=== PATIENT | male | born 1955 | race Caucasian/White ===

== ENCOUNTER 2017-12-05 02:36 | Inpatient (IN) | payer OTHER ==
[2017-12-05 03:25] LABS: ADD MAN DIFF? NO
[2017-12-05] MEDS: SOD CHLORIDE 0.9% 1,000 ML IV ×2 (03:26→13:23)
[2017-12-05 03:28] LABS: WHITE BLOOD COUNT 9.6 10^3/ul (4.8-10.8)
[2017-12-05 03:28] LABS: BASOPHILS % 0.4 % (0.0-2.0); EOSINOPHILS # 0.1 10^3/ul (0.0-0.5); EOSINOPHILS % 0.5 % (0.0-7.0); HEMATOCRIT 36.4 % (42.0-52.0); HEMOGLOBIN 12.2 g/dl (14.0-18.0); LYMPHOCYTES # 2.2 10^3/ul (0.8-2.9); LYMPHOCYTES % 22.8 % (15.0-51.0); MEAN CORPUSCULAR HGB CONC 33.5 g/dl (32.0-37.0); MEAN CORPUSCULAR VOLUME 83.7 fl (82.0-101.0); MEAN PLATELET VOLUME 9.1 fl (7.4-10.4); MONOCYTE # 0.6 10^3/ul (0.3-0.9); MONOCYTES % 5.8 % (0.0-11.0); NEUTROPHIL # 6.7 10^3/ul (1.6-7.5); PLATELET COUNT 351 10^3/UL (140-415); RED BLOOD COUNT 4.35 10^6/ul (4.70-6.10); RED CELL DISTRIBUTION WIDTH 15.5 % (11.5-14.5)
[2017-12-05 03:59] LABS: ALANINE AMINOTRANSFERASE 55 IU/L (13-69); ALBUMIN 3.6 g/dl (3.3-4.9); ALBUMIN/GLOBULIN RATIO 1.12; ALKALINE PHOSPHATASE 86 IU/L (42-121); ANION GAP 17 (8-16); ASPARTATE AMINO TRANSFERASE 38 IU/L (15-46); BILIRUBIN,INDIRECT 0.6 mg/dl (0-1.1); BILIRUBIN,TOTAL 0.6 mg/dl (0.2-1.3); BLOOD UREA NITROGEN 25 mg/dl (7-20); CALCIUM 9.4 mg/dl (8.4-10.2); CARBON DIOXIDE 22 mmol/L (21-31); CHLORIDE 100 mmol/L (97-110); CREATININE 1.44 mg/dl (0.61-1.24); GLUCOSE 127 mg/dl (70-220); LIPASE 34 U/L (23-300); POTASSIUM 4.2 mmol/L (3.5-5.1); SODIUM 135 mmol/L (135-144); TOTAL PROTEIN 6.8 g/dl (6.1-8.1)
[2017-12-05] MEDS: LORAZEPAM 2 MG INJ IV (04:26)
[2017-12-05] MEDS ORDERED: HALOPERIDOL 5 MG INJ IM (05:30)
[2017-12-05] MEDS ORDERED: NACL 0.9% 3 ML SYG IV (06:00)
[2017-12-05] MEDS ORDERED: DOCUSATE SODIUM 100 MG CAP PO (06:00)
[2017-12-05] MEDS: PANTOPRAZOLE (EC) 40 MG TAB PO (06:45)
[2017-12-05] MEDS: DIPHTH/TET/ACEL PERTUSS (ADULT) 0.5 ML VIAL IM* (06:46)
[2017-12-05] MEDS: LORAZEPAM 0.5 MG TAB PO ×2 (06:46→15:53)
[2017-12-05] MEDS: SOD CHLORIDE 0.9% 500 ML IV (08:57)
[2017-12-05] MEDS ORDERED: LISINOPRIL 20 MG TAB PO (09:00)
[2017-12-05] MEDS: DOCUSATE SODIUM 100 MG CAP PO (09:38)
[2017-12-05] MEDS: MEMANTINE 5 MG TAB PO (09:38)
[2017-12-05] MEDS: HEPARIN 5,000 UNIT/0.5 ML VIAL SC ×2 (09:41→21:45)
[2017-12-05] MEDS: OLANZAPINE (ODT) 5 MG TAB PO (10:42)
[2017-12-05] MEDS: THIAMINE 100 MG TAB PO (10:42)
[2017-12-05] MEDS: ROPINIROLE 0.25 MG TAB PO ×3 (10:42→21:41)
[2017-12-05] MEDS ORDERED: GLUCOSE GEL 15 GRAM TUBE PO ×2 (13:00)
[2017-12-05] MEDS ORDERED: GLUCOSE GEL 15 GRAM TUBE BUCCAL (13:00)
[2017-12-05] MEDS ORDERED: GLUCAGON 1 MG INJ IM (13:00)
[2017-12-05] MEDS ORDERED: DEXTROSE 50% 50 ML SYRINGE IV ×2 (13:00)
[2017-12-05] MEDS: INSULIN ASPART [NOVOLOG] 3 ML PEN SC ×2 (17:21→21:00)
[2017-12-05] MEDS: ATORVASTATIN 40 MG TAB PO (21:41)
[2017-12-05] MEDS: ACCU-CHEK XX (21:45)
[2017-12-06] MEDS: LORAZEPAM 0.5 MG TAB PO ×4 (00:13→22:30)
[2017-12-06] MEDS: ZOLPIDEM 5 MG TAB PO ×3 (01:49→23:42)
[2017-12-06] MEDS: SOD CHLORIDE 0.9% 1,000 ML IV ×2 (03:57→17:21)
[2017-12-06 06:02] LABS: ADD MAN DIFF? NO
[2017-12-06] MEDS: PANTOPRAZOLE (EC) 40 MG TAB PO (06:08)
[2017-12-06 06:10] LABS: BASOPHIL # 0.1 10^3/ul (0.0-0.1); BASOPHILS % 0.8 % (0.0-2.0); EOSINOPHILS % 0.6 % (0.0-7.0); HEMATOCRIT 32.7 % (42.0-52.0); HEMOGLOBIN 10.8 g/dl (14.0-18.0); LYMPHOCYTES # 1.2 10^3/ul (0.8-2.9); LYMPHOCYTES % 18.6 % (15.0-51.0); MEAN CORPUSCULAR HEMOGLOBIN 28.1 pg (29.0-33.0); MEAN CORPUSCULAR VOLUME 84.9 fl (82.0-101.0); MEAN PLATELET VOLUME 9.7 fl (7.4-10.4); MONOCYTE # 0.4 10^3/ul (0.3-0.9); MONOCYTES % 5.7 % (0.0-11.0); NEUTROPHIL # 4.9 10^3/ul (1.6-7.5); PLATELET COUNT 301 10^3/UL (140-415); RED BLOOD COUNT 3.85 10^6/ul (4.70-6.10); RED CELL DISTRIBUTION WIDTH 15.9 % (11.5-14.5)
[2017-12-06 06:10] LABS: WHITE BLOOD COUNT 6.6 10^3/ul (4.8-10.8)
[2017-12-06 06:21] LABS: HEMOGLOBIN A1C 6.9 % (0-5.9)
[2017-12-06 06:47] LABS: ALANINE AMINOTRANSFERASE 42 IU/L (13-69); ALBUMIN 3.2 g/dl (3.3-4.9); ALBUMIN/GLOBULIN RATIO 1.23; ALKALINE PHOSPHATASE 69 IU/L (42-121); ANION GAP 15 (8-16); ASPARTATE AMINO TRANSFERASE 17 IU/L (15-46); BILIRUBIN,INDIRECT 0.4 mg/dl (0-1.1); BILIRUBIN,TOTAL 0.4 mg/dl (0.2-1.3); BLOOD UREA NITROGEN 19 mg/dl (7-20); CALCIUM 8.9 mg/dl (8.4-10.2); CARBON DIOXIDE 25 mmol/L (21-31); CHLORIDE 102 mmol/L (97-110); CHOL/HDL RATIO 2.7 RATIO; CHOLESTEROL 112 mg/dl (100-200); CREATININE 1.28 mg/dl (0.61-1.24); GLUCOSE 96 mg/dl (70-220); HDL CHOLESTEROL 41 mg/dl (30-78); LDL CHOLESTEROL,CALCULATED 42 mg/dl; POTASSIUM 3.9 mmol/L (3.5-5.1); SODIUM 138 mmol/L (135-144); TOTAL PROTEIN 5.8 g/dl (6.1-8.1); TRIGLYCERIDES 147 mg/dl (0-149)
[2017-12-06 07:07] LABS: THYROID STIMULATING HORMONE 0.819 MIU/L (0.465-4.680)
[2017-12-06 07:28] LABS: MAGNESIUM 1.9 mg/dl (1.7-2.5)
[2017-12-06] MEDS: INSULIN ASPART [NOVOLOG] 3 ML PEN SC ×4 (07:51→20:26)
[2017-12-06] MEDS: ACETAMINOPHEN 325 MG TAB PO (07:55)
[2017-12-06] MEDS: THIAMINE 100 MG TAB PO (08:39)
[2017-12-06] MEDS: DOCUSATE SODIUM 100 MG CAP PO (08:39)
[2017-12-06] MEDS: ROPINIROLE 0.25 MG TAB PO ×3 (08:39→20:22)
[2017-12-06] MEDS: MEMANTINE 5 MG TAB PO (08:39)
[2017-12-06] MEDS: OLANZAPINE (ODT) 5 MG TAB PO (08:39)
[2017-12-06] MEDS: HEPARIN 5,000 UNIT/0.5 ML VIAL SC ×2 (08:41→20:25)
[2017-12-06] MEDS: DIPHENHYDRAMINE 50 MG INJ IM (10:00)
[2017-12-06 13:03] LABS: ADD UMIC YES; UR ASCORBIC ACID NEGATIVE (NEGATIVE); UR BILIRUBIN (Dip) NEGATIVE (NEGATIVE); UR BLOOD (Dip) 1+ mg/dL (NEGATIVE); UR CLARITY CLEAR (CLEAR); UR COLOR COLORLESS (YELLOW); UR GLUCOSE (Dip) NEGATIVE (NEGATIVE); UR KETONES (Dip) NEGATIVE (NEGATIVE); UR LEUKOCYTE ESTERASE (Dip) NEGATIVE Leu/ul (NEGATIVE); UR NITRITE (Dip) NEGATIVE (NEGATIVE); UR RBC 0 /HPF (0-5); UR SPECIFIC GRAVITY (Dip) 1.003 (1.003-1.030); UR TOTAL PROTEIN (Dip) NEGATIVE (NEGATIVE); UR UROBILINOGEN (Dip) NEGATIVE (NEGATIVE); UR WBC 0 /HPF (0-5)
[2017-12-06] MEDS: BALSAM PERU/CASTOR OIL 60 GM TUBE TOP ×2 (15:35→20:22)
[2017-12-06] MEDS: ATORVASTATIN 40 MG TAB PO (20:22)
[2017-12-07] MEDS: ACCU-CHEK XX (01:51)
[2017-12-07] MEDS: LORAZEPAM 0.5 MG TAB PO ×2 (04:29→10:46)
[2017-12-07] MEDS: PANTOPRAZOLE (EC) 40 MG TAB PO (05:32)
[2017-12-07] MEDS: SOD CHLORIDE 0.9% 1,000 ML IV ×2 (06:54→22:19)
[2017-12-07] MEDS: INSULIN ASPART [NOVOLOG] 3 ML PEN SC ×4 (07:56→20:19)
[2017-12-07] MEDS: ROPINIROLE 0.25 MG TAB PO ×3 (08:24→20:13)
[2017-12-07] MEDS: THIAMINE 100 MG TAB PO (08:24)
[2017-12-07] MEDS: MEMANTINE 5 MG TAB PO (08:24)
[2017-12-07] MEDS: BALSAM PERU/CASTOR OIL 60 GM TUBE TOP ×2 (08:24→20:13)
[2017-12-07] MEDS: DOCUSATE SODIUM 100 MG CAP PO (08:24)
[2017-12-07] MEDS: OLANZAPINE (ODT) 5 MG TAB PO (08:24)
[2017-12-07] MEDS: HEPARIN 5,000 UNIT/0.5 ML VIAL SC ×2 (08:26→20:19)
[2017-12-07] MEDS ORDERED: ALPRAZOLAM 0.5 MG TAB PO (12:00)
[2017-12-07] MEDS: ALPRAZOLAM 0.25 MG TAB PO ×2 (15:36→23:36)
[2017-12-07] MEDS: ATORVASTATIN 40 MG TAB PO (20:12)
[2017-12-07] MEDS: ZOLPIDEM 5 MG TAB PO ×2 (20:12→22:18)
[2017-12-07] MEDS ORDERED: HALOPERIDOL 5 MG INJ IM (22:30)
[2017-12-08] MEDS: ACCU-CHEK XX (02:00)
[2017-12-08] MEDS: PANTOPRAZOLE (EC) 40 MG TAB PO (05:47)
[2017-12-08] MEDS: ALPRAZOLAM 0.25 MG TAB PO ×3 (07:47→17:25)
[2017-12-08] MEDS: INSULIN ASPART [NOVOLOG] 3 ML PEN SC ×4 (07:47→21:00)
[2017-12-08] MEDS: THIAMINE 100 MG TAB PO (08:09)
[2017-12-08] MEDS: DOCUSATE SODIUM 100 MG CAP PO (08:09)
[2017-12-08] MEDS: ROPINIROLE 0.25 MG TAB PO ×3 (08:09→20:23)
[2017-12-08] MEDS: MEMANTINE 5 MG TAB PO (08:09)
[2017-12-08] MEDS: BALSAM PERU/CASTOR OIL 60 GM TUBE TOP ×2 (08:10→21:32)
[2017-12-08] MEDS: OLANZAPINE (ODT) 5 MG TAB PO (08:10)
[2017-12-08] MEDS: HEPARIN 5,000 UNIT/0.5 ML VIAL SC ×2 (08:13→20:26)
[2017-12-08] MEDS ORDERED: ALPRAZOLAM 0.5 MG TAB PO (12:00)
[2017-12-08] MEDS: SOD CHLORIDE 0.9% 1,000 ML IV ×2 (12:30→18:49)
[2017-12-08] MEDS: BENZTROPINE 1 MG TAB PO ×2 (14:05→20:23)
[2017-12-08] MEDS: ATORVASTATIN 40 MG TAB PO (20:24)
[2017-12-08] MEDS: ZOLPIDEM 5 MG TAB PO (20:25)
[2017-12-09] MEDS: ACCU-CHEK XX (02:00)
[2017-12-09] MEDS: ALPRAZOLAM 0.25 MG TAB PO ×3 (02:16→16:16)
[2017-12-09] MEDS: SOD CHLORIDE 0.9% 1,000 ML IV ×3 (02:48→17:06)
[2017-12-09] MEDS: PANTOPRAZOLE (EC) 40 MG TAB PO (06:07)
[2017-12-09] MEDS: INSULIN ASPART [NOVOLOG] 3 ML PEN SC ×4 (07:59→20:39)
[2017-12-09] MEDS: DOCUSATE SODIUM 100 MG CAP PO (08:38)
[2017-12-09] MEDS: MEMANTINE 5 MG TAB PO (08:38)
[2017-12-09] MEDS: THIAMINE 100 MG TAB PO (08:38)
[2017-12-09] MEDS: OLANZAPINE (ODT) 5 MG TAB PO (08:38)
[2017-12-09] MEDS: ROPINIROLE 0.25 MG TAB PO ×3 (08:38→20:09)
[2017-12-09] MEDS: HEPARIN 5,000 UNIT/0.5 ML VIAL SC ×2 (08:46→20:14)
[2017-12-09] MEDS: BALSAM PERU/CASTOR OIL 60 GM TUBE TOP ×2 (08:46→20:37)
[2017-12-09] MEDS: BENZTROPINE 1 MG TAB PO ×2 (08:47→20:09)
[2017-12-09] MEDS: BUSPIRONE 5 MG TAB PO ×2 (11:40→20:09)
[2017-12-09] MEDS: QUETIAPINE 100 MG TAB PO (20:10)
[2017-12-09] MEDS: ATORVASTATIN 40 MG TAB PO (20:10)
[2017-12-09] MEDS: traZODone 50 MG TAB PO (20:10)
[2017-12-10] MEDS: ALPRAZOLAM 0.25 MG TAB PO ×4 (01:57→21:05)
[2017-12-10] MEDS: ACCU-CHEK XX (02:00)
[2017-12-10] MEDS: hydrALAzine 20 MG INJ IV (02:13)
[2017-12-10] MEDS: SOD CHLORIDE 0.9% 1,000 ML IV ×2 (03:41→07:24)
[2017-12-10] MEDS: PANTOPRAZOLE (EC) 40 MG TAB PO (05:30)
[2017-12-10 07:00] LABS: ALBUMIN 3.8 g/dl (3.3-4.9); ANION GAP 15 (8-16); BLOOD UREA NITROGEN 19 mg/dl (7-20); CALCIUM 9.4 mg/dl (8.4-10.2); CARBON DIOXIDE 19 mmol/L (21-31); CHLORIDE 108 mmol/L (97-110); CREATININE 1.13 mg/dl (0.61-1.24); GLUCOSE 118 mg/dl (70-220); MAGNESIUM 1.5 mg/dl (1.7-2.5); POTASSIUM 4.2 mmol/L (3.5-5.1); SODIUM 138 mmol/L (135-144)
[2017-12-10] MEDS: INSULIN ASPART [NOVOLOG] 3 ML PEN SC ×4 (07:56→21:00)
[2017-12-10] MEDS: ROPINIROLE 0.25 MG TAB PO ×3 (08:54→20:55)
[2017-12-10] MEDS: MEMANTINE 5 MG TAB PO (08:54)
[2017-12-10] MEDS: DOCUSATE SODIUM 100 MG CAP PO (08:54)
[2017-12-10] MEDS: THIAMINE 100 MG TAB PO (08:54)
[2017-12-10] MEDS: BUSPIRONE 5 MG TAB PO ×2 (08:54→20:53)
[2017-12-10] MEDS: BALSAM PERU/CASTOR OIL 60 GM TUBE TOP ×2 (08:54→21:05)
[2017-12-10] MEDS: HEPARIN 5,000 UNIT/0.5 ML VIAL SC ×2 (08:57→21:00)
[2017-12-10] MEDS: BENZTROPINE 1 MG TAB PO ×2 (09:02→20:56)
[2017-12-10] MEDS: traZODone 50 MG TAB PO (20:54)
[2017-12-10] MEDS: QUETIAPINE 100 MG TAB PO (20:54)
[2017-12-10] MEDS: ATORVASTATIN 40 MG TAB PO (20:56)
[2017-12-11] MEDS: ACCU-CHEK XX (02:39)
[2017-12-11] MEDS: ALPRAZOLAM 0.25 MG TAB PO ×3 (03:07→17:18)
[2017-12-11] MEDS: PANTOPRAZOLE (EC) 40 MG TAB PO (05:45)
[2017-12-11 07:03] LABS: ALBUMIN 4.2 g/dl (3.3-4.9); ANION GAP 17 (8-16); BLOOD UREA NITROGEN 16 mg/dl (7-20); CALCIUM 9.8 mg/dl (8.4-10.2); CARBON DIOXIDE 21 mmol/L (21-31); CHLORIDE 105 mmol/L (97-110); CREATININE 1.15 mg/dl (0.61-1.24); GLUCOSE 121 mg/dl (70-220); MAGNESIUM 1.5 mg/dl (1.7-2.5); PHOSPHORUS 4.2 mg/dl (2.5-4.9); SODIUM 139 mmol/L (135-144)
[2017-12-11] MEDS: MEMANTINE 5 MG TAB PO (08:09)
[2017-12-11] MEDS: ROPINIROLE 0.25 MG TAB PO ×3 (08:09→19:48)
[2017-12-11] MEDS: DOCUSATE SODIUM 100 MG CAP PO (08:09)
[2017-12-11] MEDS: THIAMINE 100 MG TAB PO (08:09)
[2017-12-11] MEDS: BENZTROPINE 1 MG TAB PO ×2 (08:10→19:48)
[2017-12-11] MEDS: BUSPIRONE 5 MG TAB PO ×2 (08:10→19:48)
[2017-12-11] MEDS: HEPARIN 5,000 UNIT/0.5 ML VIAL SC ×2 (08:12→19:51)
[2017-12-11] MEDS: BALSAM PERU/CASTOR OIL 60 GM TUBE TOP ×2 (08:13→19:52)
[2017-12-11] MEDS: INSULIN ASPART [NOVOLOG] 3 ML PEN SC ×4 (08:14→19:51)
[2017-12-11] MEDS: ATORVASTATIN 40 MG TAB PO (19:49)
[2017-12-11] MEDS: traZODone 50 MG TAB PO (19:49)
[2017-12-11] MEDS: QUETIAPINE 100 MG TAB PO (19:50)
[2017-12-12] MEDS: ALPRAZOLAM 0.25 MG TAB PO ×4 (00:29→18:41)
[2017-12-12] MEDS: ACCU-CHEK XX (00:56)
[2017-12-12] MEDS: PANTOPRAZOLE (EC) 40 MG TAB PO (05:19)
[2017-12-12 06:15] LABS: ADD MAN DIFF? NO
[2017-12-12 06:19] LABS: WHITE BLOOD COUNT 5.3 10^3/ul (4.8-10.8)
[2017-12-12 06:19] LABS: BASOPHILS % 0.6 % (0.0-2.0); EOSINOPHILS # 0.1 10^3/ul (0.0-0.5); EOSINOPHILS % 1.5 % (0.0-7.0); HEMATOCRIT 33.2 % (42.0-52.0); HEMOGLOBIN 10.9 g/dl (14.0-18.0); LYMPHOCYTES # 1.7 10^3/ul (0.8-2.9); LYMPHOCYTES % 31.6 % (15.0-51.0); MEAN CORPUSCULAR HEMOGLOBIN 27.8 pg (29.0-33.0); MEAN CORPUSCULAR HGB CONC 32.8 g/dl (32.0-37.0); MEAN CORPUSCULAR VOLUME 84.7 fl (82.0-101.0); MEAN PLATELET VOLUME 9.5 fl (7.4-10.4); MONOCYTE # 0.4 10^3/ul (0.3-0.9); NEUTROPHIL # 3.1 10^3/ul (1.6-7.5); NEUTROPHILS % 58.9 % (39.0-77.0); PLATELET COUNT 273 10^3/UL (140-415); RED BLOOD COUNT 3.92 10^6/ul (4.70-6.10); RED CELL DISTRIBUTION WIDTH 16.5 % (11.5-14.5)
[2017-12-12 06:40] LABS: ALANINE AMINOTRANSFERASE 72 IU/L (13-69); ALBUMIN 3.6 g/dl (3.3-4.9); ALBUMIN/GLOBULIN RATIO 1.33; ALKALINE PHOSPHATASE 75 IU/L (42-121); ANION GAP 15 (8-16); ASPARTATE AMINO TRANSFERASE 43 IU/L (15-46); BILIRUBIN,INDIRECT 0.3 mg/dl (0-1.1); BILIRUBIN,TOTAL 0.3 mg/dl (0.2-1.3); BLOOD UREA NITROGEN 17 mg/dl (7-20); CALCIUM 9.1 mg/dl (8.4-10.2); CARBON DIOXIDE 23 mmol/L (21-31); CHLORIDE 102 mmol/L (97-110); GLUCOSE 231 mg/dl (70-220); POTASSIUM 3.7 mmol/L (3.5-5.1); SODIUM 136 mmol/L (135-144); TOTAL PROTEIN 6.3 g/dl (6.1-8.1)
[2017-12-12 06:52] LABS: ALBUMIN 3.6 g/dl (3.3-4.9); ANION GAP 15 (8-16); BLOOD UREA NITROGEN 18 mg/dl (7-20); CALCIUM 9.1 mg/dl (8.4-10.2); CARBON DIOXIDE 21 mmol/L (21-31); CHLORIDE 103 mmol/L (97-110); GLUCOSE 236 mg/dl (70-220); MAGNESIUM 1.6 mg/dl (1.7-2.5); PHOSPHORUS 4.7 mg/dl (2.5-4.9); POTASSIUM 3.6 mmol/L (3.5-5.1); SODIUM 135 mmol/L (135-144)
[2017-12-12] MEDS: INSULIN ASPART [NOVOLOG] 3 ML PEN SC ×4 (08:15→21:00)
[2017-12-12] MEDS: DOCUSATE SODIUM 100 MG CAP PO (08:20)
[2017-12-12] MEDS: BALSAM PERU/CASTOR OIL 60 GM TUBE TOP ×2 (08:20→21:44)
[2017-12-12] MEDS: BUSPIRONE 5 MG TAB PO ×2 (08:21→21:34)
[2017-12-12] MEDS: BENZTROPINE 1 MG TAB PO ×2 (08:21→21:34)
[2017-12-12] MEDS: ROPINIROLE 0.25 MG TAB PO ×3 (08:21→21:35)
[2017-12-12] MEDS: MEMANTINE 5 MG TAB PO (08:22)
[2017-12-12] MEDS: THIAMINE 100 MG TAB PO (08:22)
[2017-12-12] MEDS: HEPARIN 5,000 UNIT/0.5 ML VIAL SC ×2 (08:23→21:36)
[2017-12-12] MEDS: LORAZEPAM 0.5 MG TAB PO ×2 (10:08→16:20)
[2017-12-12] MEDS: QUETIAPINE 100 MG TAB PO (21:34)
[2017-12-12] MEDS: ATORVASTATIN 40 MG TAB PO (21:34)
[2017-12-12] MEDS: traZODone 50 MG TAB PO (21:34)
[2017-12-13] MEDS: LORAZEPAM 0.5 MG TAB PO ×2 (00:42→09:19)
[2017-12-13] MEDS: ALPRAZOLAM 0.25 MG TAB PO ×2 (01:24→11:11)
[2017-12-13] MEDS: ACCU-CHEK XX (01:31)
[2017-12-13] MEDS: PANTOPRAZOLE (EC) 40 MG TAB PO (07:07)
[2017-12-13] MEDS: INSULIN ASPART [NOVOLOG] 3 ML PEN SC ×4 (08:16→21:00)
[2017-12-13] MEDS: BALSAM PERU/CASTOR OIL 60 GM TUBE TOP ×2 (08:29→21:18)
[2017-12-13] MEDS: BUSPIRONE 5 MG TAB PO ×2 (08:29→21:19)
[2017-12-13] MEDS: MEMANTINE 5 MG TAB PO (08:29)
[2017-12-13] MEDS: THIAMINE 100 MG TAB PO (08:29)
[2017-12-13] MEDS: DOCUSATE SODIUM 100 MG CAP PO (08:29)
[2017-12-13] MEDS: BENZTROPINE 1 MG TAB PO ×2 (08:29→21:18)
[2017-12-13] MEDS: ROPINIROLE 0.25 MG TAB PO ×3 (08:29→21:19)
[2017-12-13] MEDS: HEPARIN 5,000 UNIT/0.5 ML VIAL SC ×2 (08:32→21:20)
[2017-12-13] MEDS: LORAZEPAM 1 MG TAB PO (11:50)
[2017-12-13] MEDS: AL HYDROX/MG HYDROX/SIMETH 30 ML CUP PO (17:46)
[2017-12-13] MEDS: ATORVASTATIN 40 MG TAB PO (21:18)
[2017-12-13] MEDS: traZODone 50 MG TAB PO (21:19)
[2017-12-13] MEDS: QUETIAPINE 100 MG TAB PO (21:19)
[2017-12-14] MEDS: ACCU-CHEK XX (02:00)
[2017-12-14] MEDS: ALPRAZOLAM 0.25 MG TAB PO ×3 (02:06→15:55)
[2017-12-14] MEDS: LORAZEPAM 0.5 MG TAB PO ×3 (02:33→16:32)
[2017-12-14] MEDS: PANTOPRAZOLE (EC) 40 MG TAB PO (06:06)
[2017-12-14 06:13] LABS: ADD MAN DIFF? NO
[2017-12-14 06:23] LABS: BASOPHILS % 0.6 % (0.0-2.0); EOSINOPHILS # 0.1 10^3/ul (0.0-0.5); EOSINOPHILS % 2.1 % (0.0-7.0); HEMATOCRIT 30.7 % (42.0-52.0); HEMOGLOBIN 10.2 g/dl (14.0-18.0); LYMPHOCYTES # 2.1 10^3/ul (0.8-2.9); LYMPHOCYTES % 39.5 % (15.0-51.0); MEAN CORPUSCULAR HGB CONC 33.2 g/dl (32.0-37.0); MEAN CORPUSCULAR VOLUME 84.3 fl (82.0-101.0); MEAN PLATELET VOLUME 10.3 fl (7.4-10.4); MONOCYTE # 0.5 10^3/ul (0.3-0.9); MONOCYTES % 10.2 % (0.0-11.0); NEUTROPHIL # 2.5 10^3/ul (1.6-7.5); NEUTROPHILS % 47.2 % (39.0-77.0); PLATELET COUNT 294 10^3/UL (140-415); RED BLOOD COUNT 3.64 10^6/ul (4.70-6.10); RED CELL DISTRIBUTION WIDTH 16.3 % (11.5-14.5)
[2017-12-14 06:23] LABS: WHITE BLOOD COUNT 5.2 10^3/ul (4.8-10.8)
[2017-12-14 07:05] LABS: CARBON DIOXIDE 23 mmol/L (21-31); CREATININE 1.24 mg/dl (0.61-1.24); GLUCOSE 153 mg/dl (70-220); MAGNESIUM 1.7 mg/dl (1.7-2.5); PHOSPHORUS 4.1 mg/dl (2.5-4.9); POTASSIUM 3.9 mmol/L (3.5-5.1); SODIUM 137 mmol/L (135-144)
[2017-12-14] MEDS: INSULIN ASPART [NOVOLOG] 3 ML PEN SC ×4 (07:56→20:33)
[2017-12-14] MEDS: BUSPIRONE 5 MG TAB PO ×3 (07:56→20:29)
[2017-12-14] MEDS: BENZTROPINE 1 MG TAB PO ×2 (07:56→20:29)
[2017-12-14] MEDS: ROPINIROLE 0.25 MG TAB PO ×3 (07:56→20:30)
[2017-12-14] MEDS: MEMANTINE 5 MG TAB PO (07:57)
[2017-12-14] MEDS: DOCUSATE SODIUM 100 MG CAP PO (07:57)
[2017-12-14] MEDS: HEPARIN 5,000 UNIT/0.5 ML VIAL SC ×2 (07:59→20:32)
[2017-12-14] MEDS: THIAMINE 100 MG TAB PO (07:59)
[2017-12-14 08:17] LABS: ANION GAP 11 (8-16); BLOOD UREA NITROGEN 13 mg/dl (7-20); CHLORIDE 107 mmol/L (97-110)
[2017-12-14] MEDS: BALSAM PERU/CASTOR OIL 60 GM TUBE TOP ×2 (09:07→20:32)
[2017-12-14] MEDS: QUETIAPINE 25 MG TAB PO (11:24)
[2017-12-14] MEDS: ACETAMINOPHEN 325 MG TAB PO (19:10)
[2017-12-14] MEDS: ATORVASTATIN 40 MG TAB PO (20:30)
[2017-12-14] MEDS: QUETIAPINE 100 MG TAB PO (20:30)
[2017-12-14] MEDS: traZODone 100 MG TAB PO (20:30)
[2017-12-15] MEDS: LORAZEPAM 0.5 MG TAB PO ×3 (00:43→13:39)
[2017-12-15] MEDS: ALPRAZOLAM 0.25 MG TAB PO ×5 (00:46→21:54)
[2017-12-15] MEDS: ACCU-CHEK XX (02:00)
[2017-12-15] MEDS: PANTOPRAZOLE (EC) 40 MG TAB PO (05:55)
[2017-12-15 06:27] LABS: ADD MAN DIFF? NO
[2017-12-15 06:30] LABS: BASOPHILS % 0.6 % (0.0-2.0); EOSINOPHILS # 0.1 10^3/ul (0.0-0.5); EOSINOPHILS % 1.7 % (0.0-7.0); HEMATOCRIT 33.2 % (42.0-52.0); HEMOGLOBIN 11.1 g/dl (14.0-18.0); LYMPHOCYTES # 2.7 10^3/ul (0.8-2.9); LYMPHOCYTES % 38.9 % (15.0-51.0); MEAN CORPUSCULAR HEMOGLOBIN 28.5 pg (29.0-33.0); MEAN CORPUSCULAR HGB CONC 33.4 g/dl (32.0-37.0); MEAN CORPUSCULAR VOLUME 85.3 fl (82.0-101.0); MEAN PLATELET VOLUME 9.8 fl (7.4-10.4); MONOCYTE # 0.6 10^3/ul (0.3-0.9); MONOCYTES % 8.9 % (0.0-11.0); NEUTROPHIL # 3.5 10^3/ul (1.6-7.5); NEUTROPHILS % 49.6 % (39.0-77.0); PLATELET COUNT 336 10^3/UL (140-415); RED BLOOD COUNT 3.89 10^6/ul (4.70-6.10); RED CELL DISTRIBUTION WIDTH 16.4 % (11.5-14.5)
[2017-12-15 06:56] LABS: ANION GAP 14 (8-16); BLOOD UREA NITROGEN 19 mg/dl (7-20); CALCIUM 9.5 mg/dl (8.4-10.2); CARBON DIOXIDE 24 mmol/L (21-31); CHLORIDE 105 mmol/L (97-110); CREATININE 1.18 mg/dl (0.61-1.24); GLUCOSE 112 mg/dl (70-220); POTASSIUM 4.4 mmol/L (3.5-5.1); SODIUM 139 mmol/L (135-144)
[2017-12-15] MEDS: INSULIN ASPART [NOVOLOG] 3 ML PEN SC ×4 (07:31→20:39)
[2017-12-15] MEDS: THIAMINE 100 MG TAB PO (07:43)
[2017-12-15] MEDS: BENZTROPINE 1 MG TAB PO ×2 (07:43→20:38)
[2017-12-15] MEDS: DOCUSATE SODIUM 100 MG CAP PO (07:43)
[2017-12-15] MEDS: ROPINIROLE 0.25 MG TAB PO ×3 (07:43→20:05)
[2017-12-15] MEDS: MEMANTINE 5 MG TAB PO (07:43)
[2017-12-15] MEDS: BUSPIRONE 5 MG TAB PO ×3 (07:43→20:07)
[2017-12-15] MEDS: BISACODYL (EC) 5 MG TAB PO (07:44)
[2017-12-15] MEDS: HEPARIN 5,000 UNIT/0.5 ML VIAL SC ×2 (07:45→20:09)
[2017-12-15] MEDS: BALSAM PERU/CASTOR OIL 60 GM TUBE TOP ×2 (07:45→20:08)
[2017-12-15] MEDS: ATORVASTATIN 40 MG TAB PO (20:05)
[2017-12-15] MEDS: traZODone 100 MG TAB PO (20:05)
[2017-12-15] MEDS: QUETIAPINE 100 MG TAB PO (20:06)
[2017-12-16] MEDS: LORAZEPAM 0.5 MG TAB PO (00:13)
[2017-12-16] MEDS: ACCU-CHEK XX (01:59)
[2017-12-16] MEDS: ALPRAZOLAM 0.25 MG TAB PO ×5 (04:14→20:49)
[2017-12-16] MEDS: PANTOPRAZOLE (EC) 40 MG TAB PO (06:48)
[2017-12-16] MEDS: INSULIN ASPART [NOVOLOG] 3 ML PEN SC ×4 (07:49→21:00)
[2017-12-16] MEDS: DOCUSATE SODIUM 100 MG CAP PO (08:01)
[2017-12-16] MEDS: THIAMINE 100 MG TAB PO (08:01)
[2017-12-16] MEDS: MEMANTINE 5 MG TAB PO (08:01)
[2017-12-16] MEDS: ROPINIROLE 0.25 MG TAB PO ×3 (08:01→20:54)
[2017-12-16] MEDS: BENZTROPINE 1 MG TAB PO ×2 (08:02→21:01)
[2017-12-16] MEDS: BUSPIRONE 5 MG TAB PO ×3 (08:02→20:49)
[2017-12-16] MEDS: HEPARIN 5,000 UNIT/0.5 ML VIAL SC ×2 (08:03→20:58)
[2017-12-16] MEDS: BALSAM PERU/CASTOR OIL 60 GM TUBE TOP ×2 (08:05→21:00)
[2017-12-16 10:10] LABS: ADD MAN DIFF? NO
[2017-12-16 10:13] LABS: BASOPHILS % 0.4 % (0.0-2.0); EOSINOPHILS % 0.3 % (0.0-7.0); HEMATOCRIT 33.1 % (42.0-52.0); LYMPHOCYTES # 1.4 10^3/ul (0.8-2.9); LYMPHOCYTES % 19.8 % (15.0-51.0); MEAN CORPUSCULAR HEMOGLOBIN 28.3 pg (29.0-33.0); MEAN CORPUSCULAR HGB CONC 33.2 g/dl (32.0-37.0); MEAN CORPUSCULAR VOLUME 85.1 fl (82.0-101.0); MEAN PLATELET VOLUME 9.8 fl (7.4-10.4); MONOCYTE # 0.5 10^3/ul (0.3-0.9); NEUTROPHILS % 72.4 % (39.0-77.0); PLATELET COUNT 337 10^3/UL (140-415); RED BLOOD COUNT 3.89 10^6/ul (4.70-6.10); RED CELL DISTRIBUTION WIDTH 16.3 % (11.5-14.5)
[2017-12-16 10:37] LABS: ANION GAP 14 (8-16); BLOOD UREA NITROGEN 20 mg/dl (7-20); CALCIUM 9.5 mg/dl (8.4-10.2); CARBON DIOXIDE 23 mmol/L (21-31); CHLORIDE 103 mmol/L (97-110); CREATININE 1.18 mg/dl (0.61-1.24); GLUCOSE 140 mg/dl (70-220); POTASSIUM 4.6 mmol/L (3.5-5.1); SODIUM 135 mmol/L (135-144)
[2017-12-16] MEDS: VALPROIC ACID 250 MG CAP PO ×2 (13:48→20:48)
[2017-12-16] MEDS: SOD CHLORIDE 0.9% 1,000 ML IV ×2 (15:39→16:21)
[2017-12-16] MEDS: METOPROLOL 25 MG TAB PO ×2 (16:47→20:54)
[2017-12-16] MEDS: ACETAMINOPHEN 325 MG TAB PO (17:14)
[2017-12-16] MEDS: ATORVASTATIN 40 MG TAB PO (20:49)
[2017-12-16] MEDS: QUETIAPINE 100 MG TAB PO (20:54)
[2017-12-17] MEDS: ACCU-CHEK XX (02:00)
[2017-12-17] MEDS: PANTOPRAZOLE (EC) 40 MG TAB PO (05:59)
[2017-12-17 06:04] LABS: ADD MAN DIFF? NO
[2017-12-17 06:14] LABS: BASOPHILS % 0.4 % (0.0-2.0); EOSINOPHILS # 0.1 10^3/ul (0.0-0.5); HEMATOCRIT 34.4 % (42.0-52.0); HEMOGLOBIN 11.4 g/dl (14.0-18.0); LYMPHOCYTES # 2.3 10^3/ul (0.8-2.9); LYMPHOCYTES % 27.1 % (15.0-51.0); MEAN CORPUSCULAR HGB CONC 33.1 g/dl (32.0-37.0); MEAN CORPUSCULAR VOLUME 84.5 fl (82.0-101.0); MEAN PLATELET VOLUME 9.5 fl (7.4-10.4); MONOCYTE # 0.8 10^3/ul (0.3-0.9); MONOCYTES % 9.8 % (0.0-11.0); NEUTROPHIL # 5.2 10^3/ul (1.6-7.5); NEUTROPHILS % 61.2 % (39.0-77.0); PLATELET COUNT 354 10^3/UL (140-415); RED BLOOD COUNT 4.07 10^6/ul (4.70-6.10); RED CELL DISTRIBUTION WIDTH 16.3 % (11.5-14.5)
[2017-12-17 06:14] LABS: WHITE BLOOD COUNT 8.4 10^3/ul (4.8-10.8)
[2017-12-17 06:23] LABS: ANION GAP 18 (8-16); BLOOD UREA NITROGEN 19 mg/dl (7-20); CALCIUM 9.5 mg/dl (8.4-10.2); CARBON DIOXIDE 22 mmol/L (21-31); CHLORIDE 100 mmol/L (97-110); CREATININE 1.34 mg/dl (0.61-1.24); GLUCOSE 120 mg/dl (70-220); POTASSIUM 4.7 mmol/L (3.5-5.1); SODIUM 135 mmol/L (135-144)
[2017-12-17] MEDS: ALPRAZOLAM 0.25 MG TAB PO ×5 (07:22→20:22)
[2017-12-17] MEDS: ACETAMINOPHEN 325 MG TAB PO ×2 (07:44→17:12)
[2017-12-17] MEDS: INSULIN ASPART [NOVOLOG] 3 ML PEN SC ×4 (07:45→20:30)
[2017-12-17] MEDS: DOCUSATE SODIUM 100 MG CAP PO (08:41)
[2017-12-17] MEDS: THIAMINE 100 MG TAB PO (08:41)
[2017-12-17] MEDS: VALPROIC ACID 250 MG CAP PO ×2 (08:41→20:21)
[2017-12-17] MEDS: ROPINIROLE 0.25 MG TAB PO ×3 (08:42→20:22)
[2017-12-17] MEDS: BUSPIRONE 5 MG TAB PO ×3 (08:42→20:21)
[2017-12-17] MEDS: BENZTROPINE 1 MG TAB PO ×2 (08:42→20:21)
[2017-12-17] MEDS: METOPROLOL 25 MG TAB PO ×2 (08:44→20:25)
[2017-12-17] MEDS: MEMANTINE 5 MG TAB PO (08:45)
[2017-12-17] MEDS: HEPARIN 5,000 UNIT/0.5 ML VIAL SC ×2 (08:46→20:30)
[2017-12-17] MEDS: BALSAM PERU/CASTOR OIL 60 GM TUBE TOP ×2 (09:49→20:23)
[2017-12-17 14:06] LABS: IRON 76 ug/dl (35-150)
[2017-12-17 14:16] LABS: % IRON SATURATION 24 % SAT (22-52); TOTAL IRON BINDING CAPACITY 316 ug/dl (241-421)
[2017-12-17 14:42] LABS: FERRITIN 32.8 ng/ml (11.1-264.0)
[2017-12-17] MEDS: QUETIAPINE 100 MG TAB PO (20:21)
[2017-12-17] MEDS: ATORVASTATIN 40 MG TAB PO (20:21)
[2017-12-17] MEDS: LITHIUM CARBONATE (SR) 300 MG TAB PO (20:22)
[2017-12-18] MEDS: ACCU-CHEK XX (01:04)
[2017-12-18] MEDS: ALPRAZOLAM 0.25 MG TAB PO ×5 (02:14→21:36)
[2017-12-18] MEDS: PANTOPRAZOLE (EC) 40 MG TAB PO ×2 (06:00→08:22)
[2017-12-18] MEDS: INSULIN ASPART [NOVOLOG] 3 ML PEN SC ×4 (08:15→21:00)
[2017-12-18] MEDS: BENZTROPINE 1 MG TAB PO ×2 (08:19→21:31)
[2017-12-18] MEDS: MEMANTINE 5 MG TAB PO (08:20)
[2017-12-18] MEDS: ROPINIROLE 0.25 MG TAB PO ×3 (08:20→21:30)
[2017-12-18] MEDS: THIAMINE 100 MG TAB PO (08:20)
[2017-12-18] MEDS: VALPROIC ACID 250 MG CAP PO ×2 (08:20→21:30)
[2017-12-18] MEDS: BUSPIRONE 5 MG TAB PO ×3 (08:20→21:31)
[2017-12-18] MEDS: DOCUSATE SODIUM 100 MG CAP PO (08:20)
[2017-12-18] MEDS: BALSAM PERU/CASTOR OIL 60 GM TUBE TOP ×2 (08:21→21:36)
[2017-12-18] MEDS: METOPROLOL 25 MG TAB PO ×2 (08:22→21:31)
[2017-12-18] MEDS: HEPARIN 5,000 UNIT/0.5 ML VIAL SC ×2 (08:23→21:35)
[2017-12-18] MEDS: DULOXETINE 30 MG CAP DR PO (10:19)
[2017-12-18] MEDS: LITHIUM CARBONATE (SR) 300 MG TAB PO (21:00)
[2017-12-18] MEDS: QUETIAPINE 100 MG TAB PO (21:29)
[2017-12-18] MEDS: ATORVASTATIN 40 MG TAB PO (21:30)
[2017-12-19] MEDS: ALPRAZOLAM 0.25 MG TAB PO ×6 (00:27→21:05)
[2017-12-19] MEDS: ACCU-CHEK XX (01:03)
[2017-12-19] MEDS: PANTOPRAZOLE (EC) 40 MG TAB PO (05:53)
[2017-12-19 07:55] LABS: LITHIUM < 0.4 mmol/L (0.6-1.3)
[2017-12-19] MEDS: INSULIN ASPART [NOVOLOG] 3 ML PEN SC ×4 (08:15→20:59)
[2017-12-19] MEDS: DOCUSATE SODIUM 100 MG CAP PO (09:14)
[2017-12-19] MEDS: THIAMINE 100 MG TAB PO (09:15)
[2017-12-19] MEDS: METOPROLOL 25 MG TAB PO ×2 (09:15→21:02)
[2017-12-19] MEDS: ROPINIROLE 0.25 MG TAB PO ×3 (09:15→21:00)
[2017-12-19] MEDS: VALPROIC ACID 250 MG CAP PO ×2 (09:15→21:12)
[2017-12-19] MEDS: MEMANTINE 5 MG TAB PO (09:15)
[2017-12-19] MEDS: BUSPIRONE 5 MG TAB PO ×3 (09:16→20:59)
[2017-12-19] MEDS: BENZTROPINE 1 MG TAB PO ×2 (09:16→21:12)
[2017-12-19] MEDS: DULOXETINE 30 MG CAP DR PO (09:16)
[2017-12-19] MEDS: BALSAM PERU/CASTOR OIL 60 GM TUBE TOP ×2 (09:16→21:13)
[2017-12-19] MEDS: HEPARIN 5,000 UNIT/0.5 ML VIAL SC ×2 (09:18→21:05)
[2017-12-19] MEDS: ACETAMINOPHEN 325 MG TAB PO (16:11)
[2017-12-19] MEDS: QUETIAPINE 100 MG TAB PO (21:02)
[2017-12-19] MEDS: ATORVASTATIN 40 MG TAB PO (21:03)
[2017-12-19] MEDS: LITHIUM CARBONATE (SR) 300 MG TAB PO (21:03)
[2017-12-20] MEDS: ACCU-CHEK XX (02:00)
[2017-12-20] MEDS: ALPRAZOLAM 0.25 MG TAB PO ×6 (04:22→23:04)
[2017-12-20] MEDS: PANTOPRAZOLE (EC) 40 MG TAB PO (06:00)
[2017-12-20] MEDS: INSULIN ASPART [NOVOLOG] 3 ML PEN SC ×4 (07:38→20:07)
[2017-12-20] MEDS: DOCUSATE SODIUM 100 MG CAP PO (08:34)
[2017-12-20] MEDS: METOPROLOL 25 MG TAB PO ×2 (08:34→19:47)
[2017-12-20] MEDS: BENZTROPINE 1 MG TAB PO ×2 (08:35→19:58)
[2017-12-20] MEDS: THIAMINE 100 MG TAB PO (08:35)
[2017-12-20] MEDS: BUSPIRONE 5 MG TAB PO ×3 (08:35→19:46)
[2017-12-20] MEDS: ROPINIROLE 0.25 MG TAB PO ×3 (08:35→19:47)
[2017-12-20] MEDS: DULOXETINE 30 MG CAP DR PO (08:35)
[2017-12-20] MEDS: MEMANTINE 5 MG TAB PO (08:35)
[2017-12-20] MEDS: VALPROIC ACID 250 MG CAP PO ×2 (08:35→19:59)
[2017-12-20] MEDS: BALSAM PERU/CASTOR OIL 60 GM TUBE TOP ×2 (08:36→20:49)
[2017-12-20] MEDS: HEPARIN 5,000 UNIT/0.5 ML VIAL SC ×2 (08:36→20:48)
[2017-12-20] MEDS: QUETIAPINE 25 MG TAB GTB ×2 (13:04→19:48)
[2017-12-20] MEDS: ATORVASTATIN 40 MG TAB PO (19:47)
[2017-12-20] MEDS: QUETIAPINE 100 MG TAB PO (20:47)
[2017-12-21] MEDS: ACCU-CHEK XX (01:13)
[2017-12-21] MEDS: PANTOPRAZOLE (EC) 40 MG TAB PO (04:58)
[2017-12-21] MEDS: ALPRAZOLAM 0.25 MG TAB PO ×2 (04:59→08:10)
[2017-12-21] MEDS: INSULIN ASPART [NOVOLOG] 3 ML PEN SC ×4 (08:08→21:00)
[2017-12-21] MEDS: BUSPIRONE 5 MG TAB PO ×3 (08:09→20:41)
[2017-12-21] MEDS: MEMANTINE 5 MG TAB PO (08:09)
[2017-12-21] MEDS: BENZTROPINE 1 MG TAB PO ×2 (08:10→20:41)
[2017-12-21] MEDS: THIAMINE 100 MG TAB PO (08:11)
[2017-12-21] MEDS: DOCUSATE SODIUM 100 MG CAP PO (08:11)
[2017-12-21] MEDS: ROPINIROLE 0.25 MG TAB PO ×3 (08:11→20:41)
[2017-12-21] MEDS: METOPROLOL 25 MG TAB PO ×2 (08:11→20:42)
[2017-12-21] MEDS: VALPROIC ACID 250 MG CAP PO ×3 (08:12→20:41)
[2017-12-21] MEDS: BALSAM PERU/CASTOR OIL 60 GM TUBE TOP ×2 (08:12→20:42)
[2017-12-21] MEDS: HEPARIN 5,000 UNIT/0.5 ML VIAL SC ×2 (08:13→20:49)
[2017-12-21] MEDS: OLANZAPINE (ODT) 5 MG TAB ODT ×2 (13:31→20:41)
[2017-12-21] MEDS: ACETAMINOPHEN 325 MG TAB PO (14:33)
[2017-12-21] MEDS: traZODone 100 MG TAB PO (20:41)
[2017-12-21] MEDS: ATORVASTATIN 40 MG TAB PO (20:41)
[2017-12-22] MEDS: ACCU-CHEK XX (01:02)
[2017-12-22] MEDS: LORAZEPAM 2 MG INJ IV (03:02)
[2017-12-22] MEDS: HALOPERIDOL 5 MG INJ IM (03:15)
[2017-12-22] MEDS: PANTOPRAZOLE (EC) 40 MG TAB PO (05:57)
[2017-12-22] MEDS: INSULIN ASPART [NOVOLOG] 3 ML PEN SC ×4 (08:15→21:00)
[2017-12-22] MEDS: METOPROLOL 25 MG TAB PO ×2 (10:13→21:56)
[2017-12-22] MEDS: VALPROIC ACID 250 MG CAP PO ×3 (10:13→21:54)
[2017-12-22] MEDS: BENZTROPINE 1 MG TAB PO ×2 (10:14→21:56)
[2017-12-22] MEDS: ROPINIROLE 0.25 MG TAB PO ×3 (10:14→21:54)
[2017-12-22] MEDS: DOCUSATE SODIUM 100 MG CAP PO (10:14)
[2017-12-22] MEDS: BUSPIRONE 5 MG TAB PO ×3 (10:14→21:55)
[2017-12-22] MEDS: MEMANTINE 5 MG TAB PO (10:14)
[2017-12-22] MEDS: THIAMINE 100 MG TAB PO (10:14)
[2017-12-22] MEDS: HEPARIN 5,000 UNIT/0.5 ML VIAL SC ×2 (10:16→21:57)
[2017-12-22] MEDS: BALSAM PERU/CASTOR OIL 60 GM TUBE TOP ×2 (10:16→21:57)
[2017-12-22] MEDS: OLANZAPINE (ODT) 5 MG TAB ODT ×3 (10:24→21:56)
[2017-12-22] MEDS: ATORVASTATIN 40 MG TAB PO (21:54)
[2017-12-22] MEDS: traZODone 50 MG TAB PO (21:55)
[2017-12-23] MEDS: ACCU-CHEK XX (02:00)
[2017-12-23] MEDS: ACETAMINOPHEN 325 MG TAB PO (06:26)
[2017-12-23] MEDS: PANTOPRAZOLE (EC) 40 MG TAB PO (06:26)
[2017-12-23] MEDS: BENZTROPINE 1 MG TAB PO ×2 (08:08→21:36)
[2017-12-23] MEDS: INSULIN ASPART [NOVOLOG] 3 ML PEN SC ×4 (08:08→21:00)
[2017-12-23] MEDS: BUSPIRONE 5 MG TAB PO ×3 (08:09→21:35)
[2017-12-23] MEDS: OLANZAPINE (ODT) 5 MG TAB ODT ×3 (08:09→21:36)
[2017-12-23] MEDS: THIAMINE 100 MG TAB PO (08:09)
[2017-12-23] MEDS: VALPROIC ACID 250 MG CAP PO ×3 (08:09→21:36)
[2017-12-23] MEDS: DOCUSATE SODIUM 100 MG CAP PO (08:10)
[2017-12-23] MEDS: MEMANTINE 5 MG TAB PO (08:17)
[2017-12-23] MEDS: METOPROLOL 25 MG TAB PO ×2 (08:17→21:36)
[2017-12-23] MEDS: HEPARIN 5,000 UNIT/0.5 ML VIAL SC ×2 (08:31→21:40)
[2017-12-23] MEDS: ROPINIROLE 0.25 MG TAB PO ×3 (08:31→21:35)
[2017-12-23] MEDS: BALSAM PERU/CASTOR OIL 60 GM TUBE TOP ×2 (12:09→21:37)
[2017-12-23] MEDS: LORAZEPAM 1 MG TAB PO (16:37)
[2017-12-23] MEDS: ATORVASTATIN 40 MG TAB PO (21:36)
[2017-12-23] MEDS: traZODone 50 MG TAB PO (21:36)
[2017-12-24] MEDS: ACCU-CHEK XX (02:00)
[2017-12-24] MEDS: PANTOPRAZOLE (EC) 40 MG TAB PO (05:52)
[2017-12-24] MEDS: INSULIN ASPART [NOVOLOG] 3 ML PEN SC ×4 (08:15→20:51)
[2017-12-24] MEDS: VALPROIC ACID 250 MG CAP PO ×3 (08:19→20:50)
[2017-12-24] MEDS: BUSPIRONE 5 MG TAB PO ×3 (08:19→20:51)
[2017-12-24] MEDS: DOCUSATE SODIUM 100 MG CAP PO (08:19)
[2017-12-24] MEDS: METOPROLOL 25 MG TAB PO ×2 (08:20→20:52)
[2017-12-24] MEDS: ROPINIROLE 0.25 MG TAB PO ×3 (08:20→20:50)
[2017-12-24] MEDS: OLANZAPINE (ODT) 5 MG TAB ODT ×3 (08:20→20:50)
[2017-12-24] MEDS: BENZTROPINE 1 MG TAB PO ×2 (08:21→20:49)
[2017-12-24] MEDS: BALSAM PERU/CASTOR OIL 60 GM TUBE TOP ×2 (08:21→20:56)
[2017-12-24] MEDS: HEPARIN 5,000 UNIT/0.5 ML VIAL SC ×2 (08:23→20:55)
[2017-12-24] MEDS: ACETAMINOPHEN 325 MG TAB PO (10:52)
[2017-12-24] MEDS: LORAZEPAM 1 MG TAB PO (17:37)
[2017-12-24] MEDS: ATORVASTATIN 40 MG TAB PO (20:49)
[2017-12-24] MEDS: traZODone 50 MG TAB PO (20:50)
[2017-12-25] MEDS: LORAZEPAM 1 MG TAB PO ×3 (00:52→22:34)
[2017-12-25] MEDS: ACCU-CHEK XX (02:00)
[2017-12-25] MEDS: PANTOPRAZOLE (EC) 40 MG TAB PO (06:28)
[2017-12-25] MEDS: INSULIN ASPART [NOVOLOG] 3 ML PEN SC ×4 (07:40→20:36)
[2017-12-25] MEDS: DOCUSATE SODIUM 100 MG CAP PO (09:00)
[2017-12-25] MEDS: ROPINIROLE 0.25 MG TAB PO ×3 (09:29→20:24)
[2017-12-25] MEDS: VALPROIC ACID 250 MG CAP PO ×3 (09:30→20:24)
[2017-12-25] MEDS: OLANZAPINE (ODT) 5 MG TAB ODT ×3 (09:30→20:24)
[2017-12-25] MEDS: METOPROLOL 25 MG TAB PO ×2 (09:30→20:25)
[2017-12-25] MEDS: BUSPIRONE 5 MG TAB PO ×3 (09:38→20:24)
[2017-12-25] MEDS: BENZTROPINE 1 MG TAB PO ×2 (09:38→20:25)
[2017-12-25] MEDS: BALSAM PERU/CASTOR OIL 60 GM TUBE TOP ×2 (09:40→20:37)
[2017-12-25] MEDS: HEPARIN 5,000 UNIT/0.5 ML VIAL SC ×2 (09:40→20:32)
[2017-12-25] MEDS: GUAIFENESIN 20 MG/ML 5ML CUP PO (13:54)
[2017-12-25] MEDS: traZODone 50 MG TAB PO (20:24)
[2017-12-25] MEDS: ATORVASTATIN 40 MG TAB PO (20:25)
[2017-12-26] MEDS: ACCU-CHEK XX (02:00)
[2017-12-26] MEDS: PANTOPRAZOLE (EC) 40 MG TAB PO (06:40)
[2017-12-26] MEDS: INSULIN ASPART [NOVOLOG] 3 ML PEN SC ×3 (07:57→17:06)
[2017-12-26] MEDS: LORAZEPAM 1 MG TAB PO ×2 (08:21→16:14)
[2017-12-26] MEDS: OLANZAPINE (ODT) 5 MG TAB ODT ×2 (08:21→13:39)
[2017-12-26] MEDS: ROPINIROLE 0.25 MG TAB PO ×2 (08:21→13:39)
[2017-12-26] MEDS: BENZTROPINE 1 MG TAB PO (08:21)
[2017-12-26] MEDS: BALSAM PERU/CASTOR OIL 60 GM TUBE TOP (08:21)
[2017-12-26] MEDS: METOPROLOL 25 MG TAB PO (08:22)
[2017-12-26] MEDS: DOCUSATE SODIUM 100 MG CAP PO (08:22)
[2017-12-26] MEDS: BUSPIRONE 5 MG TAB PO ×2 (08:22→13:39)
[2017-12-26] MEDS: VALPROIC ACID 250 MG CAP PO ×2 (08:22→13:38)
[2017-12-26] MEDS: HEPARIN 5,000 UNIT/0.5 ML VIAL SC (08:24)
== END 2017-12-26 18:40 | disposition home or self-care (01) | DRG 683 ==
LOC: MS2 12-22 12:35 → E/R 02:36 → MS2 04:41
DX: N17.9 Acute kidney failure, unspecified (principal); G82.20 Paraplegia, unspecified; T76.11XA Adult physical abuse, suspected, initial encounter; E86.0 Dehydration; G20 Parkinson's disease; F02.80 Dementia in other diseases classified elsewhere, unspecified severity, without behavioral disturbance, psychotic disturbance, mood disturbance, and anxiety; S00.81XA Abrasion of other part of head, initial encounter; Y92.129 Unspecified place in nursing home as the place of occurrence of the external cause; I10 Essential (primary) hypertension; E78.5 Hyperlipidemia, unspecified; E11.9 Type 2 diabetes mellitus without complications; J44.9 Chronic obstructive pulmonary disease, unspecified; F41.9 Anxiety disorder, unspecified; W17.89XA Other fall from one level to another, initial encounter
CPT/HCPCS: 36415; 70450; 71045; 80048; 80053; 80061; 80069; 80178; 81001; 82728; 82962; 83036; 83540; 83690; 83735; 84100; 84443; 85025; 87081; 90715; 93005; 96361; 96374; 97110; 97116; 97162; 97530; 99285-25